=== PATIENT | female | born 1985 | race Caucasian/White ===

== ENCOUNTER 2022-11-27 11:49 | Emergency (ER) | payer BC ==
[~2022-11-27] VITALS: Ht 170.2 cm; Wt 90.7 kg
[~2022-11-27 11:49] MED LIST: ACET-1172 PO; CYCL10TA24 PO; GABA-531 PO; NAPR220C15 PO
[2022-11-27 11:50] VITALS: BP_SYST 135; PULSE 74; RESP 17; TEMP 98.8; O2SAT 99
[2022-11-27] MEDS ORDERED: DIPHTH,PERTUSS(ACELL),TET VAC 0.5 ML VIAL (Tdap) I.M. ONE (12:00)
[2022-11-27] MEDS ORDERED: ACETAMINOPHEN 325 MG TABLET PO ONE (12:00)
[2022-11-27] MEDS ORDERED: LIDOCAINE 1%, 20 ML MDV 20 ML ONE (12:01)
[2022-11-27] MEDS ORDERED: CEPH250C PO (12:04)
[2022-11-27] MEDS ORDERED: BACITRACIN 1 GM OINT TP ONE (13:18)
[2022-11-27 13:45] VITALS: BP_SYST 135; PULSE 74; RESP 17; TEMP 98.8; O2SAT 99
== END 2022-11-27 13:45 | disposition home or self-care (01) ==
LOC: SED 11:49
DX: S61.211A Laceration without foreign body of left index finger without damage to nail, initial encounter (principal); Z79.899 Other long term (current) drug therapy; W26.0XXA Contact with knife, initial encounter; Y93.89 Activity, other specified; Y92.89 Other specified places as the place of occurrence of the external cause; Y99.8 Other external cause status
CPT/HCPCS: 99283; 90715; 90471; 12001; J2001